=== PATIENT | male | born 1960 | race Two or more races ===

== ENCOUNTER 2020-05-13 10:05 | Outpatient (REF) | payer OTHER, SELFPAY | END 2020-05-13 10:06 | disposition home or self-care (01) | LOC: HO.LAB 10:05 | PROVIDERS: Visit Provider Internal Medicine | DX: Z20.828 Contact with and (suspected) exposure to other viral communicable diseases (principal) | CPT/HCPCS: C9803; U0003 ==

== ENCOUNTER 2023-09-04 14:40 | Emergency (ER) | payer SELFPAY ==
--- NOTE | ~2023-09-04 | XR_ITS ---
EXAMINATION: XR RIBS, LEFT CLINICAL INFORMATION: Left rib pain. Shortness of breath. COMPARISON: None available. TECHNIQUE: AP supine view of the chest and 3 views of the left ribs were obtained. FINDINGS: Mild bibasilar atelectasis. Borderline low lung volumes. No consolidation, pneumothorax, or pleural effusion. The cardiomediastinal silhouette and pulmonary vasculature are normal. Acute, mildly displaced fractures are evident at the left sixth and seventh ribs anteriorly. Additional rib fractures are identified. 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 XR/XR ribs LT min 3V w CXR1V IMPRESSION: 1. Acute, mildly displaced fractures of the left sixth and seventh ribs anteriorly. 2. No acute pulmonary findings.
[2023-09-04 15:37] VITALS: BP 183/107; PULSE 75; RESP 16; TEMP 36.6; O2SAT 96; BMI 32.6
--- NOTE | 2023-09-04 15:41 | ED.FALL ---
HPI - Fall General Chief Complaint: Fall Stated Complaint: fell rib inj diff breathing Time Seen by Provider: 09/04/23 16:08 Source: patient Mode of arrival: ambulatory Limitations: no limitations History of Present Illness HPI Narrative: Patient is a 8-year-old male with history of diabetes presenting to the emergency department with complaint of left rib pain after a fall prior to arrival. Patient states that he was kneeling on the vanity in his bathroom attempting to change a light bulb when he slipped, hitting his ribs on the edge of the vanity. He denies head strike or loss of consciousness. He has not anticoagulated. He reports increasing pain with deep inspiration. complaint: fall Onset (ago): hour(s) Fall from: from height (distance) (2-3 feet) Fall witnessed: no Loss of consciousness: none Prolonged down time: no Symptoms prior to fall: none Context: tripped/slipped Location of injury: chest Severity: severe Quality: aching Associated symptoms (after fall): denies Related Data Previous Rx's ?Medication ?Instructions ?Recorded lidocaine 5 % topical patch 1 patch topical DAILY #15 ea 09/04/23 Allergies Allergy/AdvReac Type Severity Reaction Status Date / Time No Known Allergies Allergy Verified 09/04/23 15:42 Review of Systems Review of Systems: As per HPI. Yes all other systems are reviewed and are negative Constitutional: Constitutional: Reports as per HPI [facility]LY [facility] Social History Social History Smoked in Last 30 Days: Yes Use of substances other than those prescribed or required for medical reasons: No Advance Directives: No Advance Directives Information Provided: No Physical Exam Vital Signs: Vital Signs: Last Vital Signs Temp 97.8 F 09/04/23 15:37 Pulse 75 09/04/23 15:37 Resp 16 09/04/23 15:37 BP 183/107 H 09/04/23 15:37 Pulse Ox 96 09/04/23 15:37 O2 Del Method Room Air 09/04/23 15:37 BMI result Body Mass Index 32.6 Vital signs have been reviewed and appear to be correct. Blood pressure elevated. Heart rate normal. Respiratory rate normal. Temperature normal. Oxygen saturation normal. Const: General: cooperative, healthy appearing and no acute distress Orientation/consciousness: oriented to person, oriented to place, oriented to time and patient oriented x3 Limitations: no limitations HEENT: Head: Yes normocephalic and Yes atraumatic Ears: external ears normal General nose exam: Normal external nose present Face and sinus: Yes face symmetric Mouth: oropharynx normal and moist mucous membranes Throat: Yes uvula midline Eyes: Pupils: Equal, round and reactive pupils present Neck: Neck: Yes normal visual inspection and Yes supple Chest: Chest palpation & inspection: normal inspection of the chest and tenderness rib left mid-clavicular line Resp: Effort & Inspection: normal respiratory effort, able to speak in complete sentences, no respiratory distress, no retractions and no use of accessory muscles Auscultation: clear to auscultation bilaterally Cardio: Rate: regular rate Rhythm: regular rhythm Heart sounds: S1 normal heart sound present and S2 normal heart sound present GI: Palpation (GI): Soft to palpation and nontender Auscultation: normoactive bowel sounds : General: Yes no CVA tenderness Back/Spine/Pelvis: Back: no CVA tenderness Skin: General skin exam: elasticity normal and turgor normal Neuro: General: oriented to person, oriented to place, oriented to time, patient oriented x3, moves all extremities, no focal motor deficits and CN's II-XI intact bilaterally Cranial nerves: Yes Equal, round and reactive pupils present Cognition (Neuro): normal cognition Extrem: General: Yes full ROM, Yes no pedal edema and Yes no calf tenderness Psych: Mental Status: mental status grossly normal Affect: normal affect Thought process: Normal thought process present Course Course Course Narrative: This is an RME: Additional HPI, ROS, PE not included below will be deferred to primary provider. This is a [id number]-male, with hx of diabetes, presenting to the ER with complaints of left-sided rib pain status post mechanical fall. Patient states that he was kneeling on vanity trying to fix a light bulb when suddenly he fell and struck the left side of his ribs on the corner of a vanity. He states that it is hard to breathe because he is feeling a ?cloup cloup every time he takes a deep breath. Plan: Oxygen saturation 96% on room air. He is hypertensive however speaking in full sentences. X-ray left ribs ordered. Medical Decision Making Medical Decision Making MDM Narrative: Patient is a 8-year-old male with history of diabetes presenting to the emergency department with complaint of left rib pain after a fall prior to arrival. On exam patient is awake, A+Ox3, BP elevated, VS otherwise WNL, afebrile, normal neurological exam without focal deficits, physical exam findings as above. Given reported symptoms and physical exam findings, initial differential includes rib fractures, pneumothorax, hemothorax. X-ray notable for fracture of 6th and 7th left ribs. My interpretation is in agreement with the radiologist's interpretation. Patient updated on results and all questions answered. Discussed using pillows for splinting. Will provide patient with incentive spirometer and instruction. Advised patient to alternate Tylenol and ibuprofen, will prescribe topical lidocaine patches. Instructed patient to follow-up with his primary care provider. Return precautions discussed at bedside. Patient verbalized understanding of and agreement with plan. Differential Diagnosis Differential Diagnoses: The differential diagnosis associated with the presentation includes As per MDM. Admission/Observation Consideration of admission/observation: Escalation of care including admission/observation considered Patient would have been admitted to the hospital had their work up had any findings where hospital admission was appropriate and their clinical presentation warranted hospital admission. Independent Interpretation I performed an independent interpretation of an: Plain X-Ray Interpretation: Fractures of left 6th and 7th ribs anteriorly Radiology Impression Discussion of test interpretation with radiology: I have reviewed the radiologist's reading. Radiologist Impression: XR/XR ribs LT min 3V w CXR1V IMPRESSION: 1. Acute, mildly displaced fractures of the left sixth and seventh ribs anteriorly. 2. No acute pulmonary findings. External Record Review External record reviewed: Inpatient record, Office record and Outpatient record Prescription Management I considered prescription management with: Pain Medication Discharge Plan Discharge Clinical Impression: Left rib fracture Qualifiers: Encounter type: initial encounter Rib fracture type: multiple ribs Fracture type: closed Qualified Code(s): S22.42XA - Multiple fractures of ribs, left side, initial encounter for closed fracture Patient Disposition: Home, Self-Care Instructions: Rib Fracture (ED) Additional Instructions: You were evaluated in the emergency department today for rib pain after a fall. Your x-ray showed evidence of fractures to your left 6th and 7th ribs. You were provided with an incentive spirometer in the emergency department today, please use this as instructed. It is important to take deep breaths to prevent pneumonia. We recommend that you take 600 mg of ibuprofen or 650 mg of Tylenol every 6 hours as needed for pain. If necessary, you can alternate these medications every 3 hours. For example, at 9:00 a.m. take Tylenol, then at noon take ibuprofen, then at 3:00 p.m. take Tylenol, etc.. You are being prescribed topical lidocaine patches which you can wear for up to 12 hours in a 24 hour period. Do not apply heat directly over the patches. Please follow-up with your primary care provider. Return to the emergency department if you develop increasing pain, difficulty breathing or shortness of breath, chest pain or palpitations or any other concerning symptoms. Prescriptions: New lidocaine 5 % adhesive patch,medicated 1 patch topical DAILY Qty: 15 0RF Rx Instructions: leave on most painful area for up to 12 hrs Print Language: Mohawk
[2023-09-04] MEDS: oxyCODONE HCl Immed Release 5 MG TABLET PO (17:50)
[2023-09-04] MEDS: Ibuprofen 600 MG TABLET PO (17:50)
[2023-09-04 18:02] VITALS: BP 181/92; PULSE 64; RESP 18; TEMP 36.8; O2SAT 96
== END 2023-09-04 18:03 | disposition home or self-care (01) ==
PROVIDERS: Emergency Provider Emergency Medicine
DX: S22.42XA Multiple fractures of ribs, left side, initial encounter for closed fracture (principal); R07.81 Pleurodynia; R07.89 Other chest pain; R06.02 Shortness of breath; W01.10XA Fall on same level from slipping, tripping and stumbling with subsequent striking against unspecified object, initial encounter; Y93.9 Activity, unspecified; Y92.9 Unspecified place or not applicable; Y99.8 Other external cause status
CPT/HCPCS: 71101; 94010; 99283; 99284

== ENCOUNTER 2023-09-07 05:27 | Inpatient (IN) | payer MEDICAID, OTHER, SELFPAY ==
[2023-09-07] VITALS (13 sets, daily range): BP systolic 147–211; BP diastolic 81–123; PULSE 67–92; RESP 17–25; TEMP 36.8–37.4; O2SAT 88–97; BMI 28.2
--- NOTE | 2023-09-07 | ECG_ITS ---
Test Reason : DYSPNEA Blood Pressure : / mmHG Vent. Rate : 086 BPM Atrial Rate : 086 BPM P-R Int : 140 ms QRS Dur : 090 ms QT Int : 378 ms P-R-T Axes : 068 008 137 degrees QTc Int : 452 ms Normal sinus rhythm Left ventricular hypertrophy with repolarization abnormality ( R in aVL , Sokolow-Kim , Rell product , Romhilt-Melendrez ) Abnormal ECG No previous ECGs available Referred By: Generic ED Physician Electronically Signed By:OLLIE SARAH
--- NOTE | ~2023-09-07 | XR_ITS ---
EXAMINATION: XR CHEST CLINICAL INFORMATION: Shortness of breath COMPARISON: 09/04/2023 TECHNIQUE: Frontal view of the chest was obtained. FINDINGS: The lungs are hypoinflated. There are somewhat streaky regions of opacity at the left lung base which may reflect atelectasis or consolidation. No evidence of pneumothorax, significant pleural effusion, or overt pulmonary edema. The cardiomediastinal contour is unremarkable. No acute osseous findings are seen. XR/XR chest 1V IMPRESSION: Low lung volumes. Somewhat streaky left basilar opacity may reflect atelectasis or consolidation.
--- NOTE | ~2023-09-07 | CT_ITS ---
EXAMINATION: CT CHEST WITHOUT CONTRAST CLINICAL INFORMATION: Left-sided rib fractures with shortness of breath COMPARISON: None available. TECHNIQUE: Multidetector volumetric CT imaging of the chest was done. Axial MIP volume rendering provided. Sagittal and coronal reformatted images were obtained. This CT examination was performed using dose optimization techniques as appropriate, variously including the following: *Automated exposure control *Adjustment of mA and/or kV according to patient size (this includes techniques or standardized protocols for targeted exams where dose is matched to indication/reason for exam; i.e. extremities or head) *Use of iterative reconstruction technique DLP: 230 mGy-cm FINDINGS: LUNGS AND PLEURA: Moderate bibasilar atelectasis is seen. No large pleural effusions are present. No suspicious lung masses. No pneumothorax. MEDIASTINUM: The mediastinum is normal. CORONARY ARTERY CALCIFICATION: None visualized on this study. PLEURA: There is no pleural effusion. No pleural mass or thickening. AXILLA: No lymphadenopathy. UPPER ABDOMEN: Unremarkable. OSSEOUS STRUCTURES: There are fractures involving the left anterolateral left sixth and seventh ribs. The sixth rib fracture is displaced by one shaft length. The seventh rib fracture is displaced only by a few mms. No other rib fractures are seen. It should be noted that portions of the eighth 12th ribs are not included on this CT scan of the chest. No right-sided rib fractures are seen. No spine fractures are seen. The sternum and shoulders appear unremarkable. CT/CT chest wo IV con IMPRESSION: Left-sided rib fractures involving the sixth and seventh ribs as described above. No pneumothorax is seen. Fleischner guidelines were followed.
[2023-09-07 05:58] LABS: MANUAL DIFF FLAG NO
[2023-09-07 05:59] LABS: Basophils Absolute Auto 0.1 X10*3/uL (0.0-0.2); Basophils Percent Auto 0.4 % (0-2); Eosinophils Absolute Auto 0.1 X10*3/uL (0.0-0.4); Eosinophils Percent Auto 0.4 % (0-4); Hematocrit 41.4 % (42.0-52.0); Imm Gran Abs Auto 0.09 X10*3/uL (0.00-0.03); Imm Gran Pct Auto 0.6 % (0.0-0.4); Lymphocytes Absolute Auto 2.1 X10*3/uL (1.2-4.9); Lymphocytes Percent Auto 13.7 % (20-40); Mean Corpuscular HGB Conc 33.8 g/dl (31.0-36.0); Mean Corpuscular Hemoglobin 28.2 pg (27.0-33.0); Mean Corpuscular Volume 83.5 fL (80.0-98.0); Monocytes Absolute Auto 1.3 X10*3/uL (0.1-1.2); Monocytes Percent Auto 8.4 % (2-11); Neutrophils Absolute Auto 11.9 x10*3/uL (2.0-8.3); Neutrophils Percent Auto 76.5 % (45-73); Platelet Count 215 X10*3/uL (160-400); Red Blood Count 4.96 X10*6/uL (4.60-5.80); Red Cell Distribution Width 14.5 % (11.0-16.0); White Blood Count 15.6 X10*3/uL (4.8-10.8)
[2023-09-07 06:24] LABS: Alanine Aminotransferase 22 U/L (0-40); Alkaline Phosphatase 109 U/L (39-117); Anion Gap 12 (12-20); Aspartate Amino Transferase 21 U/L (5-37); Bilirubin Total 0.3 mg/dL (0.0-1.0); Blood Urea Nitrogen 18 mg/dL (9-16); Carbon Dioxide 21 mmol/L (22-29); Chloride 108 mmol/L (96-108); Creatinine Clr Calc Pharmacy 66.5; Estimated Glomerular Filt Rate > 60; Glucose Random 258 mg/dL (60-115); Potassium 3.9 mmol/L (3.3-5.1); Sodium 137 mmol/L (135-145); Total Protein 7.1 g/dL (6.5-8.0)
[2023-09-07 06:25] LABS: Troponin-I High Sensitivity 2.8 ng/L (<3.5-35.0)
--- NOTE | 2023-09-07 07:07 | ED_ITS ---
HPI - SOB/Dyspnea General Chief Complaint: Dyspnea Stated Complaint: SOB Time Seen by Provider: 09/07/23 06:58 Source: patient and EMS Mode of arrival: EMS Limitations: no limitations History of Present Illness HPI Narrative: Patient fell in bathroom and hit the vanity top fracturing 6th and 7th ribs. Patient presents now with increasing shortness of breath and chest pain. In addition EMS found his blood pressure to be in the 200s MD elicited complaint: shortness of breath and chest pain Onset (ago): day(s) Context: medication noncompliance Timing: constant Severity: moderate Related Data Previous Rx's ?Medication ?Instructions ?Recorded lidocaine 5 % topical patch 1 patch topical DAILY #15 ea 09/04/23 oxycodone 5 mg tablet 5 mg PO Q8H PRN severe pain (scale 09/04/23 score 7-10) #6 tabs Allergies Allergy/AdvReac Type Severity Reaction Status Date / Time No Known Allergies Allergy Verified 09/07/23 05:43 Review of Systems 2 Review of Systems: Yes all other systems are reviewed and are negative Neurologic: Denies Sensory deficit (Neuro) [facility] Social History Social History Smoked in Last 30 Days: No Advance Directives: No Advance Directives Information Provided: Yes Physical Exam 2 Vital Signs: Vital Signs: Last Vital Signs Temp 98.5 F 09/07/23 12:23 Pulse 70 09/07/23 12:23 Resp 20 09/07/23 12:23 BP 185/105 H 09/07/23 12:23 Pulse Ox 97 09/07/23 12:23 O2 Del Method Room Air 09/07/23 12:23 O2 Flow Rate 2 09/07/23 09:39 BMI result Body Mass Index 28.2 Const: Other: Patient appearing uncomfortable and short of breath General: healthy appearing Orientation/consciousness: oriented to person and patient oriented x3 Limitations: no limitations HEENT: Head: Yes normal to inspection Ears: external ears normal General nose exam: Normal external nose present Mouth: Normal oral and palatal mucosa present and oropharynx normal Throat: Yes posterior oropharynx normal Eyes: General: appearance normal, both eyes and all related structures Neck: Other: supple Neck: Yes normal visual inspection Chest: Chest palpation & inspection: normal inspection of the chest Resp: Auscultation: clear to auscultation bilaterally Cardio: Jugular venous distension: no JVD Rate: regular rate Rhythm: r egular rhythm Heart sounds: S1 normal heart sound present and S2 normal heart sound present GI: Inspection: Yes normal to inspection Palpation (GI): Soft to palpation, nontender and No hepatosplenomegaly present Auscultation: normal bowel sounds : General: Yes no CVA tenderness Back/Spine/Pelvis: Back: no CVA tenderness Skin: General skin exam: no rashes or lesions noted Neuro: General: oriented to person and patient oriented x3 Cranial nerves: Yes CN's II-XII intact bilaterally Motor exam (neuro): 5/5 motor strength present throughout Sensory Exam: No Sensory deficit (Neuro) Extrem: General: Yes normal to inspection Psych: Appearance: grossly normal Course Reevaluation(s) Reevaluation #1: patient requiring oxygen, iv pain medication, and IV labetolol for HTN urgency will admit Time: 12:38 Reevaluation #2: I spent 40 minutes of critical care, with interventions, assessments, speaking to patient, consultants, and family. Time: 12:38 Medications Administered Discontinued Medications Generic Name Dose Route Start Last Admin Trade Name Freq PRN Reason Stop Dose Admin Sodium Chloride 1,000 mls @ 500 mls/hr 09/07/23 07:15 09/07/23 11:57 Ns IVCONT 09/07/23 09:14 Infused .Q2H IOANA Infusion Insulin Human Lispro 5 unit 09/07/23 07:10 09/07/23 07:26 Insulin Lispro 100 Unit/Ml 3 Ml Vial SUBCUT 09/07/23 07:11 5 unit ONCE ONE Administration Labetalol HCl 10 mg 09/07/23 08:52 09/07/23 09:05 Labetalol Hcl 100 Mg/20 Ml Vial IVPUSH 09/07/23 08:53 10 mg ONCE ONE Administration Labetalol HCl 10 mg 09/07/23 11:36 09/07/23 11:58 Labetalol Hcl 100 Mg/20 Ml Vial IVPUSH 09/07/23 11:37 10 mg ONCE ONE Administration Lisinopril 20 mg 09/07/23 08:52 09/07/23 09:05 Lisinopril 20 Mg Tablet PO 09/07/23 08:53 20 mg ONCE ONE Administration Protocol Morphine Sulfate 4 mg 09/07/23 07:08 09/07/23 07:26 Morphine Sulfate 4 Mg/Ml Cartridge IVPUSH 09/07/23 07:09 4 mg ONCE ONE Administration Protocol Morphine Sulfate 4 mg 09/07/23 11:36 09/07/23 11:54 Morphine Sulfate 4 Mg/Ml Cartridge IVPUSH 09/07/23 11:37 4 mg ONCE ONE Administration Protocol Medical Decision Making Differential Diagnosis Differential Diagnoses: The differential diagnosis associated with the presentation includes (pneumothorax, pleural effusion, rib fracture, pulmonary contusion, HTN urgency were all considered) Admission/Observation Consideration of admission/observation: Escalation of care including admission/observation considered (Upon arrival patient was considered for admission) Consult Healthcare Provider Management of the patient was discussed with: Hospitalist Lab Data 09/07/23 05:53 09/07/23 05:53 Labs: Lab Results 09/07/23 Range/Units 05:53 WBC 15.6 H (4.8-10.8) X10*3/uL RBC 4.96 (4.60-5.80) X10*6/uL Hgb 14.0 (14.0-18.0) g/dl Hct 41.4 L (42.0-52.0) % MCV 83.5 (80.0-98.0) fL MCH 28.2 (27.0-33.0) pg MCHC 33.8 (31.0-36.0) g/dl RDW 14.5 (11.0-16.0) % Plt Count 215 (160-400) X10*3/uL MPV 11.0 (9.4-12.4) fL Immature Gran % (Auto) 0.6 H (0.0-0.4) % Neut % (Auto) 76.5 H (45-73) % Lymph % (Auto) 13.7 L (20-40) % [place] % (Auto) 8.4 (2-11) % Eos % (Auto) 0.4 (0-4) % Baso % (Auto) 0.4 (0-2) % Lymph # (Auto) 2.1 (1.2-4.9) X10*3/uL [place] # (Auto) 1.3 H (0.1-1.2) X10*3/uL Eos # (Auto) 0.1 (0.0-0.4) X10*3/uL Baso # (Auto) 0.1 (0.0-0.2) X10*3/uL Abs Immat Gran (auto) 0.09 H (0.00-0.03) X10*3/uL Absolute Neuts (auto) 11.9 H (2.0-8.3) x10*3/uL Absolute Nucleated RBC 0.000 (0.0-0.012) X10*3/uL Nucleated RBC % (auto) 0.0 (0.0-0.2) /100WBC Sodium 137 (135-145) mmol/L Potassium 3.9 (3.3-5.1) mmol/L Chloride 108 (96-108) mmol/L Carbon Dioxide 21 L (22-29) mmol/L Anion Gap 12 (12-20) BUN 18 H (9-16) mg/dL Creatinine 1.17 (0.5-1.4) mg/dL Estim Creat Clear Calc 66.5 Estimated GFR > 60 Random Glucose 258 H (60-115) mg/dL Calcium 9.0 (8.4-10.2) mg/dL Total Bilirubin 0.3 (0.0-1.0) mg/dL AST 21 (5-37) U/L ALT 22 (0-40) U/L Alkaline Phosphatase 109 (39-117) U/L Troponin I High Sens 2.8 (<3.5-35.0) ng/L Total Protein 7.1 (6.5-8.0) g/dL Albumin 4.0 (3.5-5.0) g/dL Independent Interpretation I performed an independent interpretation of an: EKG (sinus 85, flipped ts lateral consistent with LVH) and CT Scan (Chest: my reading was pleural effusion vs atelectasis) Radiology Impression Discussion of test interpretation with radiology: I have reviewed the radiologist's reading. (no effusion atelectasis, I agree) Independent Historian Clinical information obtained from an independent historian. History obtained from or confirmed by: EMS External Record Review External record reviewed: Prior outpatient radiology Prescription Management I considered prescription management with: Antibiotic (no pneumonia on CT) Chronic Conditions Patient?s care impacted by: Hypertension Discharge Plan Discharge Clinical Impression: Closed rib fracture, Atelectasis, Hypertensive urgency Patient Disposition: Admitted As Inpatient Print Language: Eritrean
[2023-09-07] MEDS: Insulin Lispro 100 UNIT/ML 3 ML VIAL SUBCUT ×3 (07:26→21:26)
[2023-09-07] MEDS: Morphine Sulfate 4 MG/ML CARTRIDGE IVPUSH ×4 (07:26→22:16)
[2023-09-07] MEDS: 0.9 % Sodium Chloride 1,000 ML 500 ML IVCONT (07:27)
[2023-09-07] MEDS: Labetalol HCL 100 MG/20 ML VIAL 10 MG IVPUSH ×2 (09:05→11:58)
[2023-09-07] MEDS: lisinopriL 20 MG TABLET PO (09:05)
--- NOTE | 2023-09-07 14:13 | P.HPHOSP_ITS ---
History of Present Illness Date of Service: 09/07/23 Attending physician on admission: Raegan Gates Chief Complaint: rib pain, sob 62-year-old male with history of vdz-zpmjjif-adetcckoc type 2 diabetes, hypertension not on medications due to poor outpatient follow-up presents to the ED earlier today for evaluation of dyspnea. He reportedly was changing a light bulb on a vanity 2 days ago, lost his balance and hit the left side of his chest. Denies head strike or loss of consciousness. He reports significant discomfort with any movement and with deep inspiration. He was seen in the ED on 09/03 with x-ray of the left ribs showing mildly displaced fractures of the left 6th and 7th ribs anteriorly but no acute pulmonary findings. Given worsening symptoms he returned to the ED today for further evaluation. Since arrival to the ED, has been hypertensive to 203/123 and on admission 193/109. Vital signs otherwise stable though is hypoxic to 87% on RA maintaining oximetry 96% on 3L via NC. He has received IV morphine, 10 mg IV labetalol x2, and 20 mg lisinopril. There is a leukocytosis of 15.6. Renal function baseline, electrolyte levels normal. Glucose 258. Hemoglobin A1c pending. Troponin 2.8. CT chest shows left-sided rib fractures involving the 6th and 7th ribs as described previously. No pneumothorax, effusions, or focal consolidation. In the ED, given 5 units lispro, 10 mg IV labetalol x2, 4 mg IV morphine x2, 1 L IV NS and 20 mg lisinopril. Review of Systems 2 Review of Systems: General: No fevers, malaise, unintentional weight loss HEENT: No blurred vision, diplopia. No sore throat, nasal congestion, rhinorrhea, sinus pain, ear pain Cardiovascular: No chest pain, palpitations, or leg edema Respiratory: +sob. No wheezing, cough GI: No abdominal pain, nausea, vomiting, diarrhea, constipation, melena, hematochezia : No dysuria, hematuria, increased urinary frequency, decreased urinary output MSK: No myalgia, back pain. +Left rib pain Neuro: No headaches, weakness, paresthesias Skin: No rashes or lesions PENDING SALE TO [facility] Medical History (Updated 09/07/23 @ 14:28 by POP Luis) HTN (hypertension) Type 2 diabetes mellitus Social History Smoked in Last 30 Days: No Advance Directives: No Advance Directives Information Provided: Yes Meds Allergies Allergy/AdvReac Type Severity Reaction Status Date / Time No Known Allergies Allergy Verified 09/07/23 05:43 Active Medications: Current Medications Acetaminophen (Acetaminophen 325 Mg Tablet) 650 mg PO Q6H PRN PRN Reason: Pain, Mild (Pain Scale 1-3) Amlodipine Besylate (Amlodipine Besylate 10 Mg Tablet) 10 mg PO DAILY IOANA; Protocol Heparin Sodium (Porcine) (Heparin Sodium,Porcine 5,000 Unit/Ml Vial) 5,000 unit SUBCUT Q12H IOANA Morphine Sulfate (Morphine Sulfate 4 Mg/Ml Cartridge) 4 mg IVPUSH Q4H PRN; Protocol PRN Reason: Pain, Severe (Pain Scale 7-10) Ondansetron HCl (Ondansetron Hcl 4 Mg/2 Ml Vial) 4 mg IVPUSH Q8H PRN PRN Reason: Nausea and Vomiting Oxycodone HCl (Oxycodone Hcl Immed Release 5 Mg Tablet) 5 mg PO Q6H PRN PRN Reason: Pain, Severe (Pain Scale 7-10) Senna (Sennosides 8.6 Mg Tablet) 17.2 mg PO BEDTIME PRN PRN Reason: Constipation Sodium Chloride (0.9 % Sodium Chloride Flush 3 Ml Syringe) 3 ml IVFLUSH QSHIFT [facility] Physical Exam 2 Vital Signs and Narrative: Vital Signs: Last Vital Signs Temp 98.5 F 09/07/23 12:23 Pulse 70 09/07/23 12:23 Resp 20 09/07/23 12:23 BP 185/105 H 09/07/23 12:23 Pulse Ox 97 09/07/23 12:23 O2 Del Method Room Air 09/07/23 12:23 O2 Flow Rate 2 09/07/23 09:39 BMI result Body Mass Index 28.2 Constitutional - Awake and Alert, No apparent distress Eyes - PERRLA, EOMI Cardiovascular - S1S2, RRR, No edema Chest - left sided rip pain to palpation, no crepitus Respiratory - Normal lung expansion, poor inspiratory effort, No respiratory distress on 3 L supplemental O2, CTA bilaterally Gastrointestinal - NT / ND; +BS; No rebound or guarding Extremities - no calf tenderness bilaterally, no swelling Skin - Warm/Dry Neurological - Alert & oriented x3 Psychological - Appropriate affect Results Labs 09/07/23 05:53 09/07/23 05:53 Labs: Laboratory Results - last 24 hr 09/07/23 05:53 MCV 83.5 MCH 28.2 MCHC 33.8 RDW 14.5 Plt Count 215 MPV 11.0 Immature Gran % (Auto) 0.6 H Neut % (Auto) 76.5 H Lymph % (Auto) 13.7 L [place] % (Auto) 8.4 Eos % (Auto) 0.4 Baso % (Auto) 0.4 Lymph # (Auto) 2.1 [place] # (Auto) 1.3 H Eos # (Auto) 0.1 Baso # (Auto) 0.1 Abs Immat Gran (auto) 0.09 H Absolute Neuts (auto) 11.9 H Absolute Nucleated RBC 0.000 Nucleated RBC % (auto) 0.0 Anion Gap 12 Estim Creat Clear Calc 66.5 Estimated GFR > 60 Random Glucose 258 H Calcium 9.0 Total Bilirubin 0.3 AST 21 ALT 22 Alkaline Phosphatase 109 Troponin I High Sens 2.8 Total Protein 7.1 Albumin 4.0 Imaging Radiologist's Impressions: Impressions Chest X-Ray 09/07/23 05:50 IMPRESSION: Low lung volumes. Somewhat streaky left basilar opacity may reflect atelectasis or consolidation. Chest CT 09/07/23 09:33 IMPRESSION: Left-sided rib fractures involving the sixth and seventh ribs as described above. No pneumothorax is seen. Fleischner guidelines were followed. Assessment and Plan (1) Closed rib fracture: Status: Acute (2) Atelectasis: Status: Acute (3) Hypertensive urgency: Status: Acute (4) Acute hypoxemic respiratory failure: Status: Acute Plan 62-year-old male with history of igk-pffvema-vujxijplw type 2 diabetes, hypertension not on medications due to poor outpatient follow-up presents to the ED earlier today for evaluation of dyspnea. He reportedly was changing a light bulb on a vanity 2 days ago, lost his balance and hit the left side of his chest. He will be admitted for further management of acute hypoxemic respiratory failure secondary to hypoventilation related to rib fractures. # acute hypoxemic respiratory failure due to hypoventilation related to rib fractures -mildly displaced rib fractures anterior 6 and 7th ribs -continue supplemental O2 to maintain oximetry greater than 92% -pain management using pain scale -pulmonary toilet # hypertensive urgency -not on home medications -add 10 mg IV hydralazine -continue lisinopril 20 mg daily (started in ED) seen add amlodipine 10 mg daily -defer echocardiogram at this time -follow blood pressures closely -monitor on telemetry # uncontrolled mpp-ljiicbd-wefumuuph type 2 diabetes with hyperglycemia -hemoglobin A1c pending -POC glucose, diabetic diet -Admelog sliding scale -will likely add Lantus pending hemoglobin A1c DVT prophylaxis-heparin Full code Patient requires inpatient stay at least 2 minutes for management of acute hypoxemic respiratory failure due to hypoventilation related to rib fractures requiring IV pain medication, pulmonary toilet, and weaning of supplemental O2. He will also require close monitoring of vital signs given hypertensive urgency requiring management with IV antihypertensive agents and cardiac monitoring. Quality Stroke Does the patient have a stroke diagnosis?: No VTE Prior VTE?: No VTE Risk Level:: Medical - moderate - high VTE Device Contraindication: Treatment Not Indicated VTE Drug Contraindication: N/A - Med Ordered
[2023-09-07 14:45] LABS: Estimated Average Glucose 229 mg/dL; Hemoglobin A1c % 9.6 % (<6.0)
[2023-09-07] MEDS: amLODIPine Besylate 10 MG TABLET PO (15:01)
[2023-09-07] MEDS: Heparin Sodium,Porcine 5,000 UNIT/ML VIAL 5000 UNIT SUBCUT (15:02)
[2023-09-07] MEDS: hydrALAZINE HCl 20 MG/ML VIAL 10 MG IVPUSH (15:02)
--- NOTE | 2023-09-07 15:41 | PHA.MEDREC ---
Pharmacy Consult ? Medication Reconciliation Pharmacy has completed the medication reconciliation. Patient reported Lisinorpil 5 mg and Basaglar 20 units. Report he use to be on metformin but stopped due to bloating He reports the from the [facility]. [facility] reports he is not a patient there. I tried to contact [facility] in [facility] but unfortunately cannot get through to them to confirm if he's actually prescribed them. I informed POP Greenberg. Dorota Pickard, RowanD
[2023-09-07] MEDS: 0.9 % Sodium Chloride Flush 3 ML SYRINGE IVFLUSH (17:06)
[2023-09-07] MEDS: oxyCODONE HCl Immed Release 5 MG TABLET PO (17:07)
[2023-09-07 17:49] LABS: Glucose, Whole Blood 246 mg/dL (60-115)
[2023-09-07] MEDS: hydrOXYzine HCL 25 MG TABLET PO (18:28)
--- NOTE | 2023-09-07 19:36 | PC.NURSE ---
Assumed care of pt Pt sitting on edge of bed eating meal. No acute distress at this time. Pending admission bed availability.
[2023-09-07 21:09] LABS: Glucose, Whole Blood 215 mg/dL (60-115)
[2023-09-07] MEDS: Insulin Glargine,Hum.rec.anlog 100 UNIT/ML 10 ML VIAL 15 UNIT SUBCUT (21:26)
[2023-09-07] MEDS: cloNIDine HCL 0.2 MG TABLET PO (22:47)
[2023-09-08] VITALS (7 sets, daily range): BP systolic 109–169; BP diastolic 63–91; PULSE 62–91; RESP 16–20; TEMP 36.4–37.3; O2SAT 91–94
[2023-09-08] MEDS: 0.9 % Sodium Chloride Flush 3 ML SYRINGE IVFLUSH ×4 (01:11→21:44)
[2023-09-08] MEDS: Heparin Sodium,Porcine 5,000 UNIT/ML VIAL 5000 UNIT SUBCUT ×2 (02:55→14:02)
[2023-09-08] MEDS: Morphine Sulfate 4 MG/ML CARTRIDGE IVPUSH ×4 (02:56→21:35)
[2023-09-08 06:29] LABS: MANUAL DIFF FLAG NO
[2023-09-08 06:47] LABS: Basophils Absolute Auto 0.1 X10*3/uL (0.0-0.2); Basophils Percent Auto 0.6 % (0-2); Eosinophils Absolute Auto 0.1 X10*3/uL (0.0-0.4); Eosinophils Percent Auto 0.9 % (0-4); Hemoglobin 13.8 g/dl (14.0-18.0); Imm Gran Abs Auto 0.04 X10*3/uL (0.00-0.03); Imm Gran Pct Auto 0.3 % (0.0-0.4); Lymphocytes Absolute Auto 2.1 X10*3/uL (1.2-4.9); Lymphocytes Percent Auto 17.9 % (20-40); Mean Corpuscular HGB Conc 33.7 g/dl (31.0-36.0); Mean Corpuscular Hemoglobin 28.2 pg (27.0-33.0); Mean Corpuscular Volume 83.8 fL (80.0-98.0); Mean Platelet Volume 11.8 fL (9.4-12.4); Monocytes Absolute Auto 1.2 X10*3/uL (0.1-1.2); Monocytes Percent Auto 10.4 % (2-11); Neutrophils Percent Auto 69.9 % (45-73); Platelet Count 218 X10*3/uL (160-400); Red Blood Count 4.89 X10*6/uL (4.60-5.80); Red Cell Distribution Width 14.6 % (11.0-16.0); White Blood Count 11.5 X10*3/uL (4.8-10.8)
[2023-09-08 06:51] LABS: Anion Gap 13 (12-20); Blood Urea Nitrogen 18 mg/dL (9-16); Calcium 8.9 mg/dL (8.4-10.2); Carbon Dioxide 21 mmol/L (22-29); Chloride 109 mmol/L (96-108); Creatinine Clr Calc Pharmacy 74.1; Estimated Glomerular Filt Rate > 60; Glucose Random 162 mg/dL (60-115); Potassium 3.7 mmol/L (3.3-5.1); Sodium 139 mmol/L (135-145)
[2023-09-08 07:25] LABS: Glucose, Whole Blood 144 mg/dL (60-115)
[2023-09-08] MEDS: amLODIPine Besylate 5 MG TABLET PO (08:03)
[2023-09-08] MEDS: cloNIDine HCL 0.2 MG TABLET PO ×2 (08:03→21:35)
[2023-09-08] MEDS: lisinopriL 10 MG TABLET PO (08:04)
[2023-09-08] MEDS: hydrALAZINE HCl 50 MG TABLET PO ×3 (08:04→21:35)
--- NOTE | 2023-09-08 08:14 | PC.NURSE ---
PT IS A/O X 4. NO SOB/DANIEL NOTED SPEAKS IN FULL SENTENCES. PT C/O 10/10 L SIDE RIB PAIN. NO EDEMA NOTED. PT AWARE OF PLAN OF CARE. PT TO BE TRANSFERRED TO THE 4TH FLOOR, ROOM 481
--- NOTE | 2023-09-08 09:04 | MHC.CM.PN ---
CM ATTEMPTED TO MEET W/PT HOWEVER PT MEETING W/FINANCIAL SERVICES WHO WILL ASSIST PT W/SIGNING UP FOR [employer], CM TO REVISIT.
[2023-09-08 11:32] LABS: Glucose, Whole Blood 282 mg/dL (60-115)
[2023-09-08] MEDS: Insulin Lispro 100 UNIT/ML 3 ML VIAL SUBCUT ×3 (12:57→21:35)
[2023-09-08] MEDS: oxyCODONE HCl Immed Release 5 MG TABLET PO (14:02)
[2023-09-08 16:01] LABS: Glucose, Whole Blood 165 mg/dL (60-115)
--- NOTE | 2023-09-08 16:07 | HO.PM.IMPN ---
Subjective Subjective Date of Service: 09/08/23 Interval History: Pain control adequate. No acute issues Review of Systems Admits chest pain with deep breath Admits shortness of breath with ambulation Denies nausea vomiting diarrhea Denies fever chills Physical Exam Vital Signs: Vital Signs: Last Vital Signs Temp 98.6 F 09/08/23 15:09 Pulse 71 09/08/23 15:09 Resp 20 09/08/23 15:09 BP 126/74 09/08/23 15:09 Pulse Ox 93 09/08/23 15:09 O2 Del Method Nasal Cannula 09/08/23 15:09 O2 Flow Rate 2 09/08/23 15:09 BMI result Body Mass Index 28.2 Const: Other: No acute distress Chest: Other: Tender left lateral chest to minimal palpation Resp: Other: Clear with diminished. No rales rhonchi or wheezes Cardio: Other: No S4; positive S1-S2; no S3 murmurs rubs or gallops Extrem: Other: Soft nontender nondistended normoactive bowel sounds Objective Data Active Medications Acetaminophen (Acetaminophen 325 Mg Tablet) 650 mg PO Q6H PRN PRN Reason: Pain, Mild (Pain Scale 1-3) Amlodipine Besylate (Amlodipine Besylate 5 Mg Tablet) 5 mg PO DAILY [facility]; Protocol Last Admin: 09/08/23 08:03 Dose: 5 mg Documented By: FREDI Clonidine HCl (Clonidine Hcl 0.2 Mg Tablet) 0.2 mg PO BID [facility]; Protocol Last Admin: 09/08/23 08:03 Dose: 0.2 mg Documented By: FREDI Glucose (Glucose Gel 15 Gm Gel..Gram.) 15 gm PO Q15M PRN; Protocol PRN Reason: per Hypoglycemia Standing Ord. Heparin Sodium (Porcine) (Heparin Sodium,Porcine 5,000 Unit/Ml Vial) 5,000 unit SUBCUT Q12H [facility] Last Admin: 09/08/23 14:02 Dose: 5,000 unit Documented By: DANTE Hydralazine HCl (Hydralazine Hcl 50 Mg Tablet) 50 mg PO TID [facility]; Protocol Last Admin: 09/08/23 14:02 Dose: 50 mg Documented By: DANTE Dextrose (D10) 250 mls @ 750 mls/hr IV Q15M PRN; Protocol PRN Reason: per Hypoglycemia Standing Ord. Insulin Glargine (Insulin Glargine,Hum.Rec.Anlog 100 Unit/Ml 10 Ml Vial) 15 unit SUBCUT BEDTIME [facility] Last Admin: 09/07/23 21:26 Dose: 15 unit Documented By: ROMARIO Insulin Human Lispro (Insulin Lispro 100 Unit/Ml 3 Ml Vial) 0 unit SUBCUT QIDACHS [facility]; Protocol Last Admin: 09/08/23 12:57 Dose: 6 unit Documented By: DANTE Lisinopril (Lisinopril 10 Mg Tablet) 10 mg PO DAILY [facility]; Protocol Last Admin: 09/08/23 08:04 Dose: 10 mg Documented By: FREDI Lisinopril (Lisinopril 5 Mg Tablet) 5 mg PO DAILY [facility]; Protocol Morphine Sulfate (Morphine Sulfate 4 Mg/Ml Cartridge) 4 mg IVPUSH Q4H PRN; Protocol PRN Reason: Pain, Severe (Pain Scale 7-10) Last Admin: 09/08/23 10:14 Dose: 4 mg Documented By: DANTE Ondansetron HCl (Ondansetron Hcl 4 Mg/2 Ml Vial) 4 mg IVPUSH Q8H PRN PRN Reason: Nausea and Vomiting Oxycodone HCl (Oxycodone Hcl Immed Release 5 Mg Tablet) 5 mg PO Q6H PRN PRN Reason: Pain, Moderate(Pain Scale 4-6) Last Admin: 09/08/23 14:02 Dose: 5 mg Documented By: DANTE Senna (Sennosides 8.6 Mg Tablet) 17.2 mg PO BEDTIME PRN PRN Reason: Constipation Sodium Chloride (0.9 % Sodium Chloride Flush 3 Ml Syringe) [facility] Last Admin: 09/08/23 08:05 Dose: 3 ml Documented By: FREDI Labs 09/08/23 04:28 09/08/23 04:28 Labs: Laboratory Results - last 24 hr 09/07/23 09/07/23 09/08/23 17:43 20:56 04:28 MCV 83.8 MCH 28.2 MCHC 33.7 RDW 14.6 Plt Count 218 MPV 11.8 Immature Gran % (Auto) 0.3 Neut % (Auto) 69.9 Lymph % (Auto) 17.9 L [place] % (Auto) 10.4 Eos % (Auto) 0.9 Baso % (Auto) 0.6 Lymph # (Auto) 2.1 [place] # (Auto) 1.2 Eos # (Auto) 0.1 Baso # (Auto) 0.1 Abs Immat Gran (auto) 0.04 H Absolute Neuts (auto) 8.0 Absolute Nucleated RBC 0.000 Nucleated RBC % (auto) 0.0 Anion Gap 13 Estim Creat Clear Calc 74.1 Estimated GFR > 60 POC Glucose 246 H 215 H Random Glucose 162 H Calcium 8.9 09/08/23 09/08/23 09/08/23 07:21 11:20 15:55 MCV MCH MCHC RDW Plt Count MPV Immature Gran % (Auto) Neut % (Auto) Lymph % (Auto) [place] % (Auto) Eos % (Auto) Baso % (Auto) Lymph # (Auto) [place] # (Auto) Eos # (Auto) Baso # (Auto) Abs Immat Gran (auto) Absolute Neuts (auto) Absolute Nucleated RBC Nucleated RBC % (auto) Anion Gap Estim Creat Clear Calc Estimated GFR POC Glucose 144 H 282 H 165 H Random Glucose Calcium Assessment and Plan (1) Acute hypoxemic respiratory failure: Status: Acute (2) Closed rib fracture: Status: Acute (3) HTN (hypertension): Status: Acute (4) Type 2 diabetes mellitus: Status: Acute Plan 62-year-old male with history of [id number] type 2 diabetes, hypertension not on medications due to poor outpatient follow-up presents to the ED earlier today for evaluation of dyspnea. He reportedly was changing a light bulb on a vanity 2 days ago, lost his balance and hit the left side of his chest. He will be admitted for further management of acute hypoxemic respiratory failure secondary to hypoventilation related to rib fractures. 1.Acute hypoxemic respiratory failure due to hypoventilation related to rib fractures -mildly displaced rib fractures anterior 6 and 7th ribs -continue supplemental O2 to maintain oximetry greater than 92% -pain management/pulmonary toilet 2.Hypertensive urgency.. Resolved -acceptable control on current therapies -continue lisinopril 20 mg daily (started in ED)/amlodipine 10 mg daily -monitor on telemetry 3.Uncontrolled nwe-xuxysrm-sfdssrsln type 2 diabetes with hyperglycemia -hemoglobin A1c pending -lispro correctional scale adjust as indicated Heparin Full code Patient requires ongoing hospitalization for IV pain management for hypoventilation related to rib fractures Quality Stroke Does the patient have a stroke diagnosis?: No VTE Prior VTE?: No VTE Risk Level:: Medical - moderate - high VTE Device Contraindication: Treatment Not Indicated VTE Drug Contraindication: N/A - Med Ordered
[2023-09-08 20:43] LABS: Glucose, Whole Blood 247 mg/dL (60-115)
[2023-09-08] MEDS: Throat Lozenge, Medicated LOZENGE 1 LOZENGE MUCOUS MEM (21:35)
[2023-09-08] MEDS: Insulin Glargine,Hum.rec.anlog 100 UNIT/ML 10 ML VIAL 15 UNIT SUBCUT (21:36)
[2023-09-09] VITALS (11 sets, daily range): BP systolic 129–185; BP diastolic 73–115; PULSE 71–86; RESP 16–20; TEMP 36.2–37.7; O2SAT 93–95
[2023-09-09] MEDS: oxyCODONE HCl Immed Release 5 MG TABLET PO (00:28)
[2023-09-09] MEDS: Acetaminophen 325 MG TABLET 650 MG PO ×2 (01:03→09:41)
[2023-09-09] MEDS: Zolpidem Tartrate 5 MG TABLET PO (01:03)
[2023-09-09] MEDS: Heparin Sodium,Porcine 5,000 UNIT/ML VIAL 5000 UNIT SUBCUT ×2 (02:25→16:25)
[2023-09-09] MEDS: Morphine Sulfate 4 MG/ML CARTRIDGE IVPUSH (06:31)
[2023-09-09] MEDS: amLODIPine Besylate 5 MG TABLET PO (07:50)
[2023-09-09] MEDS: lisinopriL 10 MG TABLET PO (07:51)
[2023-09-09] MEDS: hydrALAZINE HCl 50 MG TABLET PO ×2 (07:51→16:25)
[2023-09-09] MEDS: lisinopriL 5 MG TABLET PO (07:51)
[2023-09-09] MEDS: Insulin Lispro 100 UNIT/ML 3 ML VIAL SUBCUT ×4 (07:52→21:25)
[2023-09-09] MEDS: 0.9 % Sodium Chloride Flush 3 ML SYRINGE IVFLUSH ×2 (07:52→16:26)
[2023-09-09] MEDS: cloNIDine HCL 0.2 MG TABLET PO ×2 (07:52→21:32)
[2023-09-09 07:55] LABS: Glucose, Whole Blood 247 mg/dL (60-115)
[2023-09-09 11:22] LABS: Glucose, Whole Blood 268 mg/dL (60-115)
--- NOTE | 2023-09-09 12:14 | MHC.CM.PN ---
EMR REVIEWED, CM CONTACTED [facility] TO DETERMINE STATUS OF PT'S MH, PER FS IT WILL TAKE UP TO 48HRS AND THEY WILL CHECK STATUS, PT'S PREFERRED PHARMACY HHC AND INFO ADDED TO CHART/DCP, CM WILL CONT TO FOLLOW DC NEEDS.
[2023-09-09] MEDS: oxyCODONE HCl Immed Release 5 MG TABLET 10 MG PO (13:11)
--- NOTE | 2023-09-09 13:51 | MHC.CM.PN ---
PT MEDICALLY CLEARED FOR DC HOME SELF-CARE HOWEVER PER HOSPTALIST PT CAN STAY D/T NOT BEING ABLE TO HAVE SCRIPTS FILLED UNTIL MH IN EFFECT AND NEEDING SEVERAL NEW MEDS, CM WILL CONT TO FOLLOW.
--- NOTE | 2023-09-09 13:53 | MHC.CM.PN ---
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, FS WORKING ON MH SUZAN FOR PT. D/T NOT HAVING INSURANCE/PCP AND LIMITED PLAN HE WILL QUALIFY FOR PT WILL NOT BE ELIGIBLE FOR VNA SERVICES, PT HAS BEEN INSTRUCTED TO PRESENT AT [facility] FOR MEDS AND [facility] IF HE NEEDS TO SEE A DOCTOR AND IT IS NOT EMERGENT. PT VERIFIES HE HAS NO PCP AND HAS BEEN EDUCATED ON AND DECLINES TO COMPLETE A HCP
[2023-09-09 16:29] LABS: Glucose, Whole Blood 176 mg/dL (60-115)
[2023-09-09 21:04] LABS: Glucose, Whole Blood 177 mg/dL (60-115)
[2023-09-09] MEDS: Insulin Glargine,Hum.rec.anlog 100 UNIT/ML 10 ML VIAL 15 UNIT SUBCUT (21:25)
[2023-09-10] VITALS (8 sets, daily range): BP systolic 110–145; BP diastolic 60–87; PULSE 60–83; RESP 18–20; TEMP 36.2–36.8; O2SAT 93–95
[2023-09-10] MEDS: hydrALAZINE HCl 50 MG TABLET PO (01:52)
[2023-09-10] MEDS: 0.9 % Sodium Chloride Flush 3 ML SYRINGE IVFLUSH ×3 (01:53→16:21)
[2023-09-10] MEDS: Heparin Sodium,Porcine 5,000 UNIT/ML VIAL 5000 UNIT SUBCUT ×2 (03:20→16:19)
[2023-09-10 07:20] LABS: Glucose, Whole Blood 137 mg/dL (60-115)
[2023-09-10] MEDS: oxyCODONE HCl Immed Release 5 MG TABLET 10 MG PO ×2 (09:48→16:19)
[2023-09-10] MEDS: lisinopriL 5 MG TABLET PO (09:52)
[2023-09-10] MEDS: cloNIDine HCL 0.2 MG TABLET PO (09:52)
[2023-09-10] MEDS: amLODIPine Besylate 5 MG TABLET PO (09:53)
[2023-09-10] MEDS: lisinopriL 10 MG TABLET PO (09:53)
[2023-09-10 11:22] LABS: Glucose, Whole Blood 207 mg/dL (60-115)
[2023-09-10] MEDS: Insulin Lispro 100 UNIT/ML 3 ML VIAL SUBCUT (11:55)
--- NOTE | 2023-09-10 12:09 | MHC.CM.PN ---
PT MEDICALLY CLEARED FOR DC, ANTIC PT WILL DC AFTER 3PM ONCE FS HAS CONFIRMED HIS MH INSURANCE IS IN PLACE, THIS WILL TAKE ALL DAY D/T MH NEEDING TO CONTACT THE [employer] REGARDING PT'S SSN , PT WILL ARRANGE HIS TRANSPORT HOME.
--- NOTE | 2023-09-10 16:06 | P.PNIM_ITS ---
Subjective Subjective Date of Service: 09/10/23 Interval History: No acute issues overnight. Pain control adequate Review of Systems Admits chest pain with deep breath Admits shortness of breath with ambulation Denies nausea vomiting diarrhea Denies fever chills Physical Exam 2 Vital Signs: Vital Signs: Last Vital Signs Temp 97.6 F 09/10/23 15:58 Pulse 60 09/10/23 15:58 Resp 18 09/10/23 15:58 BP 110/60 09/10/23 15:58 Pulse Ox 94 09/10/23 15:58 O2 Del Method Room Air 09/10/23 15:58 O2 Flow Rate 2 09/10/23 07:33 BMI result Body Mass Index 28.2 Const: Other: No acute distress Chest: Other: Tender left lateral chest to minimal palpation Resp: Other: Clear with diminished. No rales rhonchi or wheezes Cardio: Other: No S4; positive S1-S2; no S3 murmurs rubs or gallops Extrem: Other: Soft nontender nondistended normoactive bowel sounds Objective Data Active Medications Acetaminophen (Acetaminophen 325 Mg Tablet) 650 mg PO Q6H PRN PRN Reason: Pain, Mild (Pain Scale 1-3) Last Admin: 09/09/23 09:41 Dose: 650 mg Documented By: KHADAR Amlodipine Besylate (Amlodipine Besylate 5 Mg Tablet) 5 mg PO DAILY [facility]; Protocol Last Admin: 09/10/23 09:53 Dose: 5 mg Documented By: KHADAR Benzocaine (Throat Lozenge, Medicated Lozenge) 1 lozenge MUCOUS MEM Q2H PRN PRN Reason: Sore Throat Last Admin: 09/08/23 21:35 Dose: 1 lozenge Documented By: LIBERTAD Clonidine HCl (Clonidine Hcl 0.2 Mg Tablet) 0.2 mg PO BID [facility]; Protocol Last Admin: 09/10/23 09:52 Dose: 0.2 mg Documented By: KHADAR Glucose (Glucose Gel 15 Gm Gel..Gram.) 15 gm PO Q15M PRN; Protocol PRN Reason: per Hypoglycemia Standing Ord. Heparin Sodium (Porcine) (Heparin Sodium,Porcine 5,000 Unit/Ml Vial) 5,000 unit SUBCUT Q12H [facility] Last Admin: 09/10/23 03:20 Dose: 5,000 unit Documented By: CARLY Hydralazine HCl (Hydralazine Hcl 50 Mg Tablet) 50 mg PO TID [facility]; Protocol Last Admin: 09/10/23 09:50 Dose: Not Given Documented By: KHADAR Non-Admin Reason: Physician Held Med Dextrose (D10) 250 mls @ 750 mls/hr IV Q15M PRN; Protocol PRN Reason: per Hypoglycemia Standing Ord. Insulin Glargine (Insulin Glargine,Hum.Rec.Anlog 100 Unit/Ml 10 Ml Vial) 15 unit SUBCUT BEDTIME [facility] Last Admin: 09/09/23 21:25 Dose: 15 unit Documented By: CARLY Insulin Human Lispro (Insulin Lispro 100 Unit/Ml 3 Ml Vial) 0 unit SUBCUT QIDACHS [facility]; Protocol Last Admin: 09/10/23 11:55 Dose: 4 unit Documented By: KHADAR Lisinopril (Lisinopril 10 Mg Tablet) 10 mg PO DAILY [facility]; Protocol Last Admin: 09/10/23 09:53 Dose: 10 mg Documented By: KHADRA Lisinopril (Lisinopril 5 Mg Tablet) 5 mg PO DAILY [facility]; Protocol Last Admin: 09/10/23 09:52 Dose: 5 mg Documented By: KHADAR Morphine Sulfate (Morphine Sulfate 4 Mg/Ml Cartridge) 4 mg IVPUSH Q4H PRN; Protocol PRN Reason: Pain, Severe (Pain Scale 7-10) Last Admin: 09/09/23 06:31 Dose: 4 mg Documented By: LIBERTAD Ondansetron HCl (Ondansetron Hcl 4 Mg/2 Ml Vial) 4 mg IVPUSH Q8H PRN PRN Reason: Nausea and Vomiting Oxycodone HCl (Oxycodone Hcl Immed Release 5 Mg Tablet) 10 mg PO Q4H PRN PRN Reason: Pain, Moderate(Pain Scale 4-6) Last Admin: 09/10/23 09:48 Dose: 10 mg Documented By: KHADAR Senna (Sennosides 8.6 Mg Tablet) 17.2 mg PO BEDTIME PRN PRN Reason: Constipation Sodium Chloride (0.9 % Sodium Chloride Flush 3 Ml Syringe) 3 ml IVFLUSH [facility] Last Admin: 09/10/23 09:53 Dose: 3 ml Documented By: KHADAR Zolpidem Tartrate (Zolpidem Tartrate 5 Mg Tablet) 5 mg PO BEDTIME PRN PRN Reason: Insomnia Last Admin: 09/09/23 01:03 Dose: 5 mg Documented By: CHIKIS Labs 09/08/23 04:28 09/08/23 04:28 Labs: Laboratory Results - last 24 hr 09/09/23 09/09/23 09/10/23 16:20 20:51 07:15 POC Glucose 176 H 177 H 137 H 09/10/23 11:18 POC Glucose 207 H Assessment and Plan (1) Acute hypoxemic respiratory failure: Status: Acute (2) Closed rib fracture: Status: Acute (3) HTN (hypertension): Status: Acute Plan 62-year-old male with history of icv-otpxjne-evqpuxocb type 2 diabetes, hypertension not on medications due to poor outpatient follow-up presents to the ED earlier today for evaluation of dyspnea. He reportedly was changing a light bulb on a vanity 2 days ago, lost his balance and hit the left side of his chest. He will be admitted for further management of acute hypoxemic respiratory failure secondary to hypoventilation related to rib fractures. 1.Acute hypoxemic respiratory failure due to hypoventilation related to rib fractures -mildly displaced rib fractures anterior 6 and 7th ribs -no further O2 requirement -discharged home with p.o. oxygen 2.Hypertensive urgency.. Resolved -acceptable control on current therapies -continue lisinopril 20 mg daily (started in ED)/amlodipine 10 mg daily 3.Uncontrolled tkh-brvqvap-ydgyumawd type 2 diabetes with hyperglycemia -hemoglobin A1c pending -lispro correctional scale adjust as indicated Heparin Full code Patient requires ongoing hospitalization for IV pain management for hypoventilation related to rib fractures Quality Stroke Does the patient have a stroke diagnosis?: No VTE Prior VTE?: No VTE Risk Level:: Medical - moderate - high VTE Device Contraindication: Treatment Not Indicated VTE Drug Contraindication: N/A - Med Ordered
--- NOTE | 2023-12-28 14:40 | PM.DS ---
DS: Providers Provider Date of Service: 12/28/23 Date of admission: 09/07/23 14:09 Date of discharge: 09/10/23 Primary care physician: Stephan Physician DS: Diagnosis Discharge Diagnosis (1) Acute hypoxemic respiratory failure: Status: Resolved (2) Closed rib fracture: Status: Acute (3) HTN (hypertension): Status: Inactive DS: Summary Hospital Course Hospital Course: 62-year-old male with history of ccc-mzpbiey-zmdmrwryf type 2 diabetes, hypertension not on medications due to poor outpatient follow-up presents to the ED earlier today for evaluation of dyspnea. He reportedly was changing a light bulb on a vanity 2 days ago, lost his balance and hit the left side of his chest. Denies head strike or loss of consciousness. He reports significant discomfort with any movement and with deep inspiration. He was seen in the ED on 09/03 with x-ray of the left ribs showing mildly displaced fractures of the left 6th and 7th ribs anteriorly but no acute pulmonary findings. Given worsening symptoms he returned to the ED today for further evaluation. Since arrival to the ED, has been hypertensive to 203/123 and on admission 193/109. Vital signs otherwise stable though is hypoxic to 87% on RA maintaining oximetry 96% on 3L via NC. He has received IV morphine, 10 mg IV labetalol x2, and 20 mg lisinopril. There is a leukocytosis of 15.6. Renal function baseline, electrolyte levels normal. Glucose 258. Hemoglobin A1c pending. Troponin 2.8. CT chest shows left-sided rib fractures involving the 6th and 7th ribs as described previously. No pneumothorax, effusions, or focal consolidation. In the ED, given 5 units lispro, 10 mg IV labetalol x2, 4 mg IV morphine x2, 1 L IV NS and 20 mg lisinopril. Hospital course Patient was admitted to telemetry and managed with IV morphine and supplemental O2. Gradually his blood pressure returned to normal. His pain control improved to the point where he tolerated oxycodone and no longer had an O2 requirement. At this point in time he is medically acceptable discharged to home with oxycodone for pain Time Attestation Discharge Coordination Time (in mins): 35 Quality: Safe Use of Opioids Does Pt have an Active Cancer Diagnosis on the Problem List?: No Quality: Stroke Does the patient have a stroke diagnosis?: No Physical Exam Vital Signs: Vital Signs: Last Vital Signs Temp 97.6 F 09/10/23 15:58 Pulse 60 09/10/23 15:58 Resp 18 09/10/23 15:58 BP 110/60 09/10/23 15:58 Pulse Ox 94 09/10/23 15:58 O2 Del Method Room Air 09/10/23 15:58 O2 Flow Rate 2 09/10/23 07:33 BMI result Body Mass Index 28.2 Const: Other: No acute distress Chest: Other: Tender left lateral chest to minimal palpation Resp: Other: Clear with diminished. No rales rhonchi or wheezes Cardio: Other: No S4; positive S1-S2; no S3 murmurs rubs or gallops Extrem: Other: Soft nontender nondistended normoactive bowel sounds Discharge Plan Discharge Anticipated Discharge Date/Time: 09/09/23 12:50 Patient Disposition: Home, Self-Care Discharge Diagnosis: Closed left 6th and 7th rib fractures Referrals: [facility] [Other] - 1 Day (PLEASE SOFTWARE DEPLOYMENT ENGINEER YOUR MEDICATION AT THE [facility] AT [address] [place] [address] IN [place], THEY WILL TAKE YOUR LIMITED [employer] INSURANCE. YOU WILL ALSO BE ABLE TO USE THEY'RE WALK IN CLINIC WHEN NEEDED. ) Physician,None [Primary Care Provider] - 1 Week Discharge Medications: New amlodipine 5 mg Tablet 5 mg PO DAILY Qty: 30 3RF Protocol: Hold for SBP< HOLD for SBP < : 90 clonidine HCl 0.2 mg Tablet 0.2 mg PO BID Qty: 60 3RF Protocol: Hold for SBP< HOLD for SBP < : 90 lisinopril 10 mg Tablet 10 mg PO DAILY Qty: 30 0RF Protocol: Hold for SBP< HOLD for SBP < : 90 hydralazine 50 mg Tablet 50 mg PO TID Qty: 90 3RF Protocol: Hold for SBP< HOLD for SBP < : 90 oxycodone 10 mg tablet 10 mg PO Q6H PRN (Reason: pain) Qty: 30 0RF Rx Instructions: Partial Fill upon patient request. Continued insulin glargine [Basaglar KwikPen U-100 Insulin] 100 unit/mL (3 mL) Insulin Pen 20 unit SUBCUT QAM Discontinued oxycodone 5 mg tablet 5 mg PO Q8H PRN (Reason: severe pain (scale score 7-10)) Qty: 6 0RF Rx Instructions: Partial Fill upon patient request. lisinopril 5 mg Tablet 5 mg PO DAILY Discharge Orders: Discharge Order (Routine); Ordered 09/10/23 Ordered By: Hugo Zuniga Diet: Advance to usual diet Activity on Discharge: As tolerated Stand Alone Forms: Patient Portal Discharge page Print Language: Pashto Care Plan Goals: New blood pressure medicines have been added to your regimen. Amlodipine, hydralazine. Clonidine, lisinopril. Take these as prescribed Health Concerns: Oxycodone as needed for your rib pain Plan of Treatment: Follow-up with your PCP next available Assessment: See discharge summary Discharge Date/Time: 09/10/23 17:45
== END 2023-09-10 17:45 | disposition home or self-care (01) | DRG 135 ==
LOC: HO.ED 13:28 → HO.EDOVER 14:18 → HO.IMC 09-08 07:34
PROVIDERS: Student in an Organized Health Care Education/Training Program; Admitting Provider Physician Assistant; Emergency Provider Emergency Medicine; Visit Provider Hospitalist
DX: S22.42XA Multiple fractures of ribs, left side, initial encounter for closed fracture (principal); J96.01 Acute respiratory failure with hypoxia; I16.0 Hypertensive urgency; W19.XXXA Unspecified fall, initial encounter; J98.11 Atelectasis; I10 Essential (primary) hypertension; E11.65 Type 2 diabetes mellitus with hyperglycemia; Z87.891 Personal history of nicotine dependence; Z91.199 Patient's noncompliance with other medical treatment and regimen due to unspecified reason; Z79.4 Long term (current) use of insulin; Z79.899 Other long term (current) drug therapy
CPT/HCPCS: 36415; 71045; 71250; 80048; 80053; 82947; 83036; 84484; 85025; 93005; 99285; J0360; J1644; J1920; J2270

== ENCOUNTER → 2023-09-07 06:00 | Outpatient (BNV) | payer SELFPAY | PROVIDERS: Admitting Provider Physician Assistant; Emergency Provider Emergency Medicine; Visit Provider Internal Medicine | DX: R06.09 Other forms of dyspnea (principal); I51.7 Cardiomegaly | CPT/HCPCS: 93010 ==

== ENCOUNTER → 2023-09-07 14:09 | Outpatient (BNV) | payer MEDICAID, SELFPAY | PROVIDERS: Admitting Provider Physician Assistant; Emergency Provider Emergency Medicine; Visit Provider Physician Assistant | DX: J96.01 Acute respiratory failure with hypoxia (principal); S22.39XA Fracture of one rib, unspecified side, initial encounter for closed fracture; I10 Essential (primary) hypertension | CPT/HCPCS: 99223; 99232; 99233; 99239 ==